=== PATIENT | male | born 1975 | race Caucasian/White ===

== ENCOUNTER → 2017-08-07 | Outpatient (CLI) | payer BC ==
--- NOTE | 2017-08-08 06:33 | MR ---
EXAMINATION TYPE: MR lumbar spine wo con DATE OF EXAM: 08/07/2017 COMPARISON: NONE HISTORY: L4-L5 disc herniation with radiculopathy per order. Low back pain for 13 years causing pain into both lower extremities for patient. TECHNIQUE: Multiplanar, multisequence imaging of the lumbar spine is performed without IV contrast. FINDINGS: Sagittal images of the lumbar spine show vertebral body heights and alignment to appear sat isfactory. There is disc desiccation at L4-L5 and to lesser degree at L5-S1 levels. There is mild dis c space narrowing L4-L5 level with posterior disc herniation seen on sagittal images. The interverteb ral discs otherwise demonstrate normal heights and hydration. There is some prominence of the epidura l fat beginning at L4 level. The conus medullaris is normal in position and signal ending at inferior L1 level. The bone marrow signal intensity is within normal limits. No significant spurring is seen . Axial images show the T12-L1, L1-L2, L2-L3, and L3-L4 levels all to appear within normal limits. Axial images at the L4-L5 level show moderate facet degenerative changes bilaterally. There is additi onal central disc protrusion seen near axial image 9. There is prominence of surrounding epidural fat noted. There is mild to moderate bilateral inferior neural foraminal narrowing noted. Axial images at L5-S1 level shows mild facet arthropathy. Spinal canal is preserved. Some left forami nal spur disc complex causes mild to moderate left-sided neural foraminal narrowing. Right-sided neur al foramen is patent. No suspicious retroperitoneal findings are seen. IMPRESSION: Some degenerative changes lower lumbar spine most prominent at L4-L5 level as detailed ab ove. Epidural lipomatosis is present in lower lumbar levels most prominent at L4-L5 level contributin g the most to spinal canal effacement or stenosis.
== END | disposition home or self-care (01) ==
LOC: RADMRIMAIN 17:41
PROVIDERS: ATTEND Family Medicine
DX: M48.061 Spinal stenosis, lumbar region without neurogenic claudication (principal); M51.16 Intervertebral disc disorders with radiculopathy, lumbar region; M99.73 Connective tissue and disc stenosis of intervertebral foramina of lumbar region; M46.87 Other specified inflammatory spondylopathies, lumbosacral region; E88.2 Lipomatosis, not elsewhere classified
CPT/HCPCS: 72148

== ENCOUNTER → 2020-02-03 | Outpatient (CLI) | payer BC | END | disposition home or self-care (01) | LOC: LABWHC1 10:14 | PROVIDERS: ATTEND Family Medicine | DX: Z03.818 Encounter for observation for suspected exposure to other biological agents ruled out (principal) | CPT/HCPCS: U0003; C9803 ==

== ENCOUNTER 2023-04-13 18:43 | Emergency (ER) | payer OTHER, BC, MEDICARE ==
--- NOTE | 2023-04-13 19:12 | ED ---
General Adult HPI <Fran March - Last Filed: 04/13/23 19:12> <PashaRobi - Last Filed: 04/13/23 21:39> - General Chief complaint: Arrhythmia/Palpitations Stated complaint: sob bp high fluttering heart beat - History of Present Illness Initial comments: 48 year Old male presenting to the ED with a chief complaint of palpitations. Patient states for the past year he has had intermittent palpitations associated with some shortness of breath. States that this often happens once a day especially with activity however states today even without activity started to experience similar symptoms. Denies chest pain. (Fran March) Patient presents to the ED with his for evaluation. Patient states that he has had intermittent palpitations and dyspnea over the past month or so. Patient states that he has had rapid palpitations and dyspnea for the past 4 hours or so today. Patient states that he feels his palpitations currently. Patient describes his palpitations as "fluttering". Patient denies having any other symptoms or complaints. Patient denies any recent change in his medications, and he denies illicit drug use. Patient denies having any pain, fever or chills, headache, focal numbness/weakness/neuro deficit, chest pain or pressure, cough or cold symptoms, dizziness, nausea/vomiting/diaphoresis, abdominal pain, diarrhea, bloody or melanotic stool, dysuria or urinary symptoms, leg or calf swelling or pain, or any other symptoms or complaints. (Robi Pak) - Related Data Home Medications Medication Instructions Recorded Confirmed Baclofen [Lioresal] 10 mg PO BID 04/13/23 04/13/23 Cariprazine HCl [Vraylar] 1.5 mg PO DAILY 04/13/23 04/13/23 Clarithromycin [Biaxin] 500 mg PO Q12HR 04/13/23 04/13/23 Omeprazole 20 mg PO DAILY 04/13/23 04/13/23 Sertraline [Zoloft] 100 mg PO DAILY 04/13/23 04/13/23 amLODIPine BESYLATE/BENAZEPRIL 1 cap PO DAILY 04/13/23 04/13/23 [amLODIPine BESYLATE/BENAZEPRIL 5-20 mg] busPIRone HCL [Buspar] 7.5 mg PO BID 04/13/23 04/13/23 cefUROXime axetiL [Ceftin] 500 mg PO BID 04/13/23 04/13/23 metFORMIN HCL [Glucophage] 1,000 mg PO BID 04/13/23 04/13/23 methocarbamoL [Robaxin-750] 750 mg PO DAILY PRN 04/13/23 04/13/23 oxyCODONE HCL [oxyCODONE HCL (IR)] 15 mg PO 5XD PRN 04/13/23 04/13/23 Allergies Allergy/AdvReac Type Severity Reaction Status Date / Time No Known Allergies Allergy Verified 04/13/23 21:20 Review of Systems ROS Other: All systems not noted in ROS Statement are negative. <Fran March - Last Filed: 04/13/23 19:12> ROS Other: All systems not noted in ROS Statement are negative. <Robi Pak - Last Filed: 04/13/23 21:39> ROS Statement: Those systems with pertinent positive or pertinent negative responses have been documented in the HPI. Past Medical History Past Medical History: Hyperlipidemia, Hypertension Additional Past Medical History / Comment(s): Lyme's disease <Robi Pak - Last Filed: 04/13/23 21:39> General Exam <Fran March - Last Filed: 04/13/23 19:12> Limitations: no limitations General appearance: alert, in no apparent distress Head exam: Present: normocephalic Eye exam: Present: normal appearance, PERRL, EOMI ENT exam: Present: mucous membranes moist Neck exam: Present: other (Trachea is in midline) Respiratory exam: Present: normal lung sounds bilaterally. Absent: respiratory distress, wheezes, rales, rhonchi, stridor Cardiovascular Exam: Present: regular rate, normal rhythm, normal heart sounds, other (Normal radial pulses bilaterally) GI/Abdominal exam: Present: soft. Absent: distended, tenderness, guarding Extremities exam: Present: other (Negative Homans sign bilaterally). Absent: tenderness, pedal edema, calf tenderness Neurological exam: Present: alert, oriented X3 Psychiatric exam: Present: normal affect Skin exam: Present: warm, dry, normal color <Robi Pak - Last Filed: 04/13/23 21:39> - General Exam Comments Initial Comments: Visual Physical Exam Vital signs reviewed General: Well-appearing, nontoxic, no acute distress. Head: Normocephalic, atraumatic Eyes: PERRLA, EOMI ENT: Airway patent Chest: Nonlabored breathing Skin: No visual rash, normal skin tone Neuro: Alert and oriented 3 Musculoskeletal: No gross abnormalities (Fran March) Course <Robi Pak - Last Filed: 04/13/23 21:39> Vital Signs 04/13/23 04/13/23 04/13/23 19:07 19:23 19:58 Temperature 99.1 F Pulse Rate 112 H 93 91 Respiratory 20 18 16 Rate Blood Pressure 166/107 162/102 160/109 O2 Sat by Pulse 99 100 98 Oximetry - Reevaluation(s) Reevaluation #1: 04/13/23 21:36 Patient remains in a sinus rhythm on the monitoring manager with heart rate now in the 60s to 70s. Patient's blood pressure has now improved to 125/88. Patient remains alert and breathing comfortably with a normal room air oxygen saturation. Patient states that his symptoms have currently resolved. Patient and are aware of the patient's test results, and they both felt comfortable with the patient being discharged home at this time. Patient was counseled about palpitations and dyspnea, and he was clearly explained return and follow- up instructions. Patient was instructed to follow up closely with his primary care provider. (Robi Pak) EKG Findings - EKG Comments: EKG Findings:: ED physician interpretation (interpreted by me): Normal sinus rhythm, ventricular rate of 93 bpm, no ectopy, normal NE and QRS intervals, normal QT interval, normal axis, no ST or T-wave abnormality <Robi Pak - Last Filed: 04/13/23 21:39> Medical Decision Making <Fran March - Last Filed: 04/13/23 19:12> - Lab Data Result diagrams: 04/13/23 19:15 04/13/23 19:15 <Robi Pak - Last Filed: 04/13/23 21:39> - Medical Decision Making Quicknote portion performed. Signed Fran March PA-C (Fran March) Was pt. sent in by a medical professional or institution (RONDA Alfonso, CLIENT SUCCESS MANAGER, urgent care, hospital, or jail...) When possible be specific @ -No Did you speak to anyone other than the patient for history (EMS, parent, family, police, friend...)? What history was obtained from this source @ -No Did you review nursing and triage notes (agree or disagree)? Why? @ -I reviewed and agree with nursing and triage notes Were old charts reviewed (outside hosp., previous admission, EMS record, old EKG, old radiological studies, urgent care reports/EKG's, jail records)? Report findings @ -No old charts were reviewed Differential Diagnosis (chest pain, altered mental status, abdominal pain women, abdominal pain men, vaginal bleeding, weakness, fever, dyspnea, syncope, headache, dizziness, GI bleed, back pain, seizure, CVA, palpatations, mental health, musculoskeletal)? @ -Differential Palpitations Ventricular arrhythmias, atrial arrhythmias, myocardial infarction, anemia, thyrotoxicosis, electrolyte imbalance, hypokalemia, pulmonary embolism, pulmonary disease, drugs, alcohol, anxiety, stress.... This is not meant to be an all-inclusive list. EKG interpreted by me (3pts min.). @ -As above X-rays interpreted by me (1pt min.). @ -Chest x-ray was reviewed myself and shows no acute abnormality. I agree with the radiologist's interpretation as above. CT interpreted by me (1pt min.). @ -None done U/S interpreted by me (1pt. min.). @ -None done What testing was considered but not performed or refused? (CT, X-rays, U/S, labs)? Why? @ -None What meds were considered but not given or refused? Why? @ -None Did you discuss the management of the patient with other professionals (professionals i.e. RONDA Alfonso, CLIENT SUCCESS MANAGER, lab, RT, psych nurse, social service technician, bobbin washer, teacher, chairman and chief executive officer, block and case maker)? Give summary @ -No Was smoking cessation discussed for >3mins.? @ -No Was critical care preformed (if so, how long)? @ -No Were there social determinants of health that impacted care today? How? (Homelessness, low income, unemployed, alcoholism, drug addiction, transportation, low edu. Level, literacy, decrease access to med. care, [facility], rehab)? @ -No Was there de-escalation of care discussed even if they declined (Discuss DNR or withdrawal of care, Hospice)? DNR status @ -No What co-morbidities impacted this encounter? (DM, HTN, Smoking, COPD, CAD, Cancer, CVA, ARF, Chemo, Hep., AIDS, mental health diagnosis, sleep apnea, morbid obesity)? @ -None Was patient admitted / discharged? Hospital course, mention meds given and route, prescriptions, significant lab abnormalities, going to OR and other pertinent info. @ -Patient has been in sinus rhythm on the monitoring manager while in the ED. Patient states that his symptoms have now resolved. Patient's d-dimer and troponin are within normal limits. Patient's electrolytes are also within normal limits. The rest of the patient's labs are fairly unremarkable. Patient's EKG and chest x-ray are also unremarkable. I do not suspect an emergent medical condition at this time. Will discharge patient home with his at this time. Strict return instructions were provided. Patient was instructed to follow up closely with his primary care provider. Patient feels comfortable with this plan. Undiagnosed new problem with uncertain prognosis? @ -No Drug Therapy requiring intensive monitoring for toxicity (Heparin, Nitro, Insulin, Cardizem)? @ -No Were any procedures done? @ -No Diagnosis/symptom? @ -Patient's and dyspnea Acute, or Chronic, or Acute on Chronic? @ -default Uncomplicated (without systemic symptoms) or Complicated (systemic symptoms)? @ -default Side effects of treatment? @ -No Exacerbation, Progression, or Severe Exacerbation? @ -No Poses a threat to life or bodily function? How? (Chest pain, USA, VT, pneumonia, PE, COPD, DKA, ARF, appy, cholecystitis, CVA, Diverticulitis, Homicidal, Suicidal, threat to staff... and all critical care pts) @ -No (Robi Pak) - Lab Data Lab Results 04/13/23 04/13/23 04/13/23 Range/Units 19:15 19:15 19:15 WBC 5.3 (3.8-10.6) k/uL RBC 5.03 (4.30-5.90) m/uL Hgb 14.4 (13.0-17.5) gm/dL Hct 41.9 (39.0-53.0) % MCV 83.2 (80.0-100.0) fL MCH 28.5 (25.0-35.0) pg MCHC 34.3 (31.0-37.0) g/dL RDW 12.6 (11.5-15.5) % Plt Count 293 (150-450) k/uL MPV 7.3 Neutrophils % 47 % Lymphocytes % 42 % Monocytes % 6 % Eosinophils % 2 % Basophils % 1 % Neutrophils # 2.5 (1.3-7.7) k/uL Lymphocytes # 2.2 (1.0-4.8) k/uL Monocytes # 0.3 (0-1.0) k/uL Eosinophils # 0.1 (0-0.7) k/uL Basophils # 0.0 (0-0.2) k/uL PT 11.1 (10.0-12.5) sec INR 1.0 (<1.2) APTT 22.8 (22.0-30.0) sec D-Dimer 0.18 (<0.60) mg/L FEU Sodium 139 (137-145) mmol/L Potassium 4.0 (3.5-5.1) mmol/L Chloride 100 (98-107) mmol/L Carbon Dioxide 22 (22-30) mmol/L Anion Gap 17 mmol/L BUN 16 (9-20) mg/dL Creatinine 1.01 (0.66-1.25) mg/dL Est GFR (CKD-EPI)AfAm >90 (>60 ml/min/1.73 sqM) Est GFR (CKD-EPI)NonAf 87 (>60 ml/min/1.73 sqM) Glucose 127 H (74-99) mg/dL Calcium 9.9 (8.4-10.2) mg/dL Magnesium 1.6 (1.6-2.3) mg/dL Total Bilirubin 0.5 (0.2-1.3) mg/dL AST 24 (17-59) U/L ALT 29 (4-49) U/L Alkaline Phosphatase 88 (38-126) U/L Troponin I (0.000-0.034) ng/mL NT-Pro-B Natriuret Pep pg/mL Total Protein 8.3 H (6.3-8.2) g/dL Albumin 5.2 H (3.5-5.0) g/dL TSH (0.465-4.680) mIU/L 04/13/23 04/13/23 04/13/23 Range/Units 19:15 19:23 19:45 WBC (3.8-10.6) k/uL RBC (4.30-5.90) m/uL Hgb (13.0-17.5) gm/dL Hct (39.0-53.0) % MCV (80.0-100.0) fL MCH (25.0-35.0) pg MCHC (31.0-37.0) g/dL RDW (11.5-15.5) % Plt Count (150-450) k/uL MPV Neutrophils % % Lymphocytes % % Monocytes % % Eosinophils % % Basophils % % Neutrophils # (1.3-7.7) k/uL Lymphocytes # (1.0-4.8) k/uL Monocytes # (0-1.0) k/uL Eosinophils # (0-0.7) k/uL Basophils # (0-0.2) k/uL PT (10.0-12.5) sec INR (<1.2) APTT (22.0-30.0) sec D-Dimer (<0.60) mg/L FEU Sodium (137-145) mmol/L Potassium (3.5-5.1) mmol/L Chloride (98-107) mmol/L Carbon Dioxide (22-30) mmol/L Anion Gap mmol/L BUN (9-20) mg/dL Creatinine (0.66-1.25) mg/dL Est GFR (CKD-EPI)AfAm (>60 ml/min/1.73 sqM) Est GFR (CKD-EPI)NonAf (>60 ml/min/1.73 sqM) Glucose (74-99) mg/dL Calcium (8.4-10.2) mg/dL Magnesium (1.6-2.3) mg/dL Total Bilirubin (0.2-1.3) mg/dL AST (17-59) U/L ALT (4-49) U/L Alkaline Phosphatase (38-126) U/L Troponin I <0.012 (0.000-0.034) ng/mL NT-Pro-B Natriuret Pep <20 pg/mL Total Protein (6.3-8.2) g/dL Albumin (3.5-5.0) g/dL TSH 2.380 (0.465-4.680) mIU/L - Radiology Data Chest x-ray: No acute pulmonary process. (Robi Pak) Disposition <Fran March - Last Filed: 04/13/23 19:12> Is patient prescribed a controlled substance at d/c from ED?: No Time of Disposition: 21:39 <Robi Pak - Last Filed: 04/13/23 21:39> Clinical Impression: Palpitations, Dyspnea Disposition: HOME SELF-CARE Condition: Stable Instructions (If sedation given, give patient instructions): Heart Palpitations (ED), Dyspnea (ED) Additional Instructions: Return to the ER immediately should you develop increased shortness of breath, chest pain, feeling dizzy or faint, or new or worsening symptoms. Follow up closely with your primary care provider. Referrals: Peter Rees DO [Primary Care Provider] - 1-2 days
[2023-04-13 19:20] VITALS: TEMP 99.1
[2023-04-13 19:43] LABS: ALT 29 U/L (4-49); AST 24 U/L (17-59); African American GFR (CKD) >90 (>60 ml/min/1.73 sqM); Albumin 5.2 g/dL (3.5-5.0); Alkaline Phosphatase 88 U/L (38-126); Anion Gap 17 mmol/L; Blood Urea Nitrogen 16 mg/dL (9-20); Calcium 9.9 mg/dL (8.4-10.2); Carbon Dioxide 22 mmol/L (22-30); Chloride 100 mmol/L (98-107); Glucose 127 mg/dL (74-99); Magnesium 1.6 mg/dL (1.6-2.3); Non-African American GFR(CKD) 87 (>60 ml/min/1.73 sqM); Sodium 139 mmol/L (137-145); Total Bilirubin 0.5 mg/dL (0.2-1.3); Total Protein 8.3 g/dL (6.3-8.2)
[2023-04-13 19:59] LABS: Basophils % (A) 1 %; Eosinophils # (A) 0.1 k/uL (0-0.7); Eosinophils % (A) 2 %; HCT 41.9 % (39.0-53.0); HGB 14.4 gm/dL (13.0-17.5); Lymphocytes # (A) 2.2 k/uL (1.0-4.8); Lymphocytes % (A) 42 %; MCH 28.5 pg (25.0-35.0); MCHC 34.3 g/dL (31.0-37.0); MCV 83.2 fL (80.0-100.0); Mean Platelet Volume 7.3; Monocytes # (A) 0.3 k/uL (0-1.0); Monocytes % (A) 6 %; Neutrophils # (A) 2.5 k/uL (1.3-7.7); Neutrophils % (A) 47 %; Platelet Count 293 k/uL (150-450); RBC 5.03 m/uL (4.30-5.90); RDW 12.6 % (11.5-15.5); WBC 5.3 k/uL (3.8-10.6)
[2023-04-13 20:02] VITALS: PULSE 91
[2023-04-13 20:10] LABS: Partial Thromboplastin Time 22.8 sec (22.0-30.0); Prothrombin Time 11.1 sec (10.0-12.5)
--- NOTE | 2023-04-13 20:11 | XR ---
EXAMINATION TYPE: XR chest 2V DATE OF EXAM: 04/13/2023 COMPARISON: None INDICATION: High blood pressure TECHNIQUE: Frontal and lateral views of the chest are obtained. FINDINGS: The heart size is normal. The pulmonary vasculature is normal. The lungs are clear. IMPRESSION: 1. No acute pulmonary process.
[2023-04-13 21:51] VITALS: BP 125/88; RESP 18
== END 2023-04-13 21:40 | disposition home or self-care (01) ==
LOC: EC 18:43
DX: R00.2 Palpitations (principal); R06.02 Shortness of breath; I10 Essential (primary) hypertension; Z79.899 Other long term (current) drug therapy
CPT/HCPCS: 36415; 71046; 80053; 83735; 83880; 84443; 84484; 85025; 85379; 85610; 85730; 93005; 99285